=== PATIENT | male | born 1965 | race Caucasian/White ===

== ENCOUNTER 2018-09-05 08:28 | Day surgery (SDC) | payer BC ==
[~2018-09-05 08:28] MED LIST: ACETAMINOPHEN 1,000 MG/100 ML BTL IV ONE; CEFAZOLIN 2 Gram 2 GM/50 ML BAG IVPB ONE
[2018-09-05] MEDS ORDERED: BUPIVACAINE LIPOSOME/PF 133MG/10ML VIAL IV ONE (08:29)
[2018-09-05] MEDS ORDERED: FENTANYL PF 100MCG/2ML VIAL IV ONE (08:29)
[2018-09-05] MEDS ORDERED: BUPIVACAINE 0.5% (5MG/ML) PF 30ML VIAL IVP ONE (08:29)
[2018-09-05] MEDS ORDERED: MORPHINE SULFATE PF 10MG/10ML VIAL IV ONE (08:29)
[2018-09-05] MEDS ORDERED: 0.9 % SODIUM CHLORIDE 100ML 100 ML IV ONE (08:29)
[2018-09-05] MEDS ORDERED: METHYLPREDNISOLONE 40MG/VIAL IM ONE (08:29)
[2018-09-05] MEDS ORDERED: KETAMINE HCL 100MG/1ML VIAL INJ ONE (08:29)
[2018-09-05] MEDS ORDERED: PROPOFOL 10 MG/ML VIAL IV ONE (08:29)
[2018-09-05] MEDS ORDERED: BUPIVACAINE 0.5% W/EPI MPF 30 ML VIAL IVP ONE (08:29)
[2018-09-05] MEDS ORDERED: DEXAMETHASONE 4 MG/ML 1ML VIAL IVP ONE (08:29)
[2018-09-05] MEDS ORDERED: MIDAZOLAM HCL 2MG/2ML VIAL IV ONE (08:29)
[2018-09-05] MEDS ORDERED: GLYCOPYRROLATE 0.2 MG/ML ML IV ONE (08:29)
--- NOTE | 2018-09-07 10:10 | Operative Note ---
DATE OF SURGERY: 09/05/2018 PREOPERATIVE DIAGNOSIS: Torn rotator cuff on the right. POSTOPERATIVE DIAGNOSES: 1. 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 2. Complex glenohumeral labral tear from approximately the 9- to 11-o'clock position. 3. Profound external impingement right shoulder. 4. Advanced arthrosis right distal clavicle. OPERATION: 1. Repair of a chronically torn right rotator cuff tear. 2. Right shoulder arthroscopy with an articular debridement. 3. Right shoulder open acromioplasty, CA ligament resection, subacromial bursectomy. 4. Right shoulder distal clavicle resection. Staff Surgeon: Reese Hicks MD Anesthesia: Block with sedation. Preparation: Chloraprep. Individual Considerations: None. PROCEDURE: The patient was taken to the operating room and placed supine on the operating room table. He had a successful induction of an axillary block and shoulder block. He was then given IV sedation and prepped and draped in the usual fashion after being placed in a semi-seated beach chair position. The patient had posterior portal identified for arthroscopy. Skin was infiltrated with 0.5% Marcaine with epinephrine prior. An 18-gauge spinal needle was easily placed in the joint, and the joint was inflated with normal saline with a 60-mL syringe. A stab wound was made, and a blunt-tipped trocar for the scope was easily placed in the joint and the joint was inflated with normal saline. An anterior accessory portal was then made just inferior to the intact long head of the biceps tendon in a retrograde fashion with a Wissinger maciel, and the joint was irrigated out. The patient had moderate synovitis, a labral tear posteriorly which was more fringe, and this was debrided with shaver. There was obvious tear of the supraspinatus. The glenohumeral joint was normal. No loose bodies were seen in the inferior pouch. Subscap tendon was normal. Long head was normal. After irrigation, closed with lul and the arthroscopy instruments were removed. The patient had anterior approach to the subacromial space and distal clavicle. Skin was again infiltrated with 0.5% Marcaine with epinephrine prior. Sharp dissection carried down through skin and subcutaneous tissue. Small veins were coagulated with a Bovie. An anterior deltoid interval was developed. Care was taken not to split the deltoid more than about 4 cm distal to the anterior tip of the acromion to prevent injury to the axillary nerve. Once in the subacromial space, there was a large vila of fluid consistent with a tear. Deltoid was then taken subperiosteally off the anterior aspect of a highly down sloping anterior acromion, over the top of the intact CA ligament, and off the anterior aspect of a highly degenerated distal clavicle. CA ligament was resected with a Bovie. Degenerated distal clavicle was resected taking about 10 cm. The patient now had a very much down sloping acromion with spur, and anterior acromioplasty was performed taking about 1 cm, most of this being spur and tapering to a wedge posteriorly and medially to include the spurs at the AC joint. The undersurface was smoothed with a rasp. A very thickened bursa was removed. In some areas it was 7-8 mm thick. I now had a good look at the rotator cuff. The patient had an obvious tear involving pretty much all the supraspinatus. There was not enough tendon to bring it actually back down to the tuberosity bone. There was about 5-6 mm of tendon remaining at the insertion, and it was good and viable. I went ahead and freshened both sides to good bleeding tendon. I did place one retention suture into the end of the tendon to take the tension off the repair and put it through the bone distally so when that pulled down, it would actually bring the tendon edges approximated and take the tension off, and then I used multiple buried #1 Ethibond sutures to repair the freshened ends of the tendon. After I again tightened down my retention suture, there was no tension across this repair. I put the shoulder through a full range of motion, and there was no impingement further. After irrigation, hemostasis was obtained with a Bovie. The deltoid was reattached to the remaining acromion with multiple interrupted #2 Vicryl going directly to the bony acromion. The periosteal cup and distal clavicle were closed with a running #2 Vicryl. Anterior deltoid interval was closed with a running #1 Vicryl. Subcu was closed with 3-0 plus Vicryl. Skin was closed with lul. An 18-gauge spinal needle was then introduced through the subacromial space. This space was injected with about almost 20 mL of 0.5% Marcaine with epinephrine along with 10 mg of morphine. A sterile bulky compressive dressing and sling were applied. The patient tolerated procedure well. Needle and sponge counts were correct. Estimated blood loss was 100 mL. The patient was taken back to recovery in good condition and no complications. TABITHA
== END 2018-09-05 13:15 | disposition home or self-care (01) ==
LOC: SUR 08:28
PROVIDERS: ATTEND Orthopaedic Surgery
DX: M75.101 Unspecified rotator cuff tear or rupture of right shoulder, not specified as traumatic (principal); S43.431A Superior glenoid labrum lesion of right shoulder, initial encounter; M75.41 Impingement syndrome of right shoulder; M89.311 Hypertrophy of bone, right shoulder
CPT/HCPCS: 23125; 23412; 23130; 29822; 01630; J3010; J0690; C9290; J1030